=== PATIENT | male | born 1985 | race Two or more races ===

== ENCOUNTER 2020-05-24 06:39 | Day surgery (SDC) | payer MEDICAID, SELFPAY ==
[2020-05-15 20:28] VITALS: BMI 29.7
[2020-05-24] VITALS (7 sets, daily range): BP systolic 112–158; BP diastolic 66–95; PULSE 70–88; RESP 16–20; TEMP 36.6–36.9; O2SAT 93–97
[2020-05-24] MEDS: ceFAZolin Sodium/Dextrose,Iso 2 GM/50 ML PIGGYBACK IV (07:26)
[2020-05-24] MEDS: Lactated Ringers 1,000 ML 50 ML IVCONT (07:35)
--- NOTE | 2020-05-24 08:01 | HO.ANESPROP2 ---
[facility] Past Medical History Medical History Elevated cholesterol Hypertension Social History Social History Smoking Status: Never smoker Second Hand Smoke Exposure: No Use of substances other than those prescribed or required for medical reasons: No Advance Directives: No Advance Directives Information Provided: No Advance Directives on File: No Recently lost weight without trying: No Meds Allergies Allergy/AdvReac Type Severity Reaction Status Date / Time No Known Allergies Allergy Verified 05/24/20 07:08 Home Medications Medication Instructions Recorded Confirmed Type amlodipine 10 mg PO DAILY 05/15/20 05/24/20 History atorvastatin 40 mg PO BEDTIME 05/15/20 05/24/20 History Exam Exam Date and Time: May 24, 2020800 Height,Weight and Vital Signs: Height 5 ft 7 in Weight 86.183 kg Last Vital Signs Temp 97.9 F 05/24/20 07:18 Pulse 70 05/24/20 07:18 Resp 16 05/24/20 07:18 BP 158/95 H 05/24/20 07:18 Pulse Ox 97 05/24/20 07:18 Airway Mallampati Class: I TM Dist: >3cm Neck ROM: Full Heart: RRR Lungs: CTA Assessment and Plan Assessment Anesthesia Assessment: Anesthesia Plan Discussed and Chart Reviewed Final Anesthetic Review NPO: Yes ASA Class: II Final Preanesthetic Review: Meds/Allgs Chart Reviewed, Consent Obtained/Reviewed and Anes Risks/Benef Reviewed Patient Risk: Low Procedure Risk: Low Anesthetic Plan Anesthetic Plan: GA Disposition: Standard PACU
--- NOTE | 2020-05-24 08:13 | MHC.SHP ---
Pre-Procedural Eval Section B Chief Complaint: Gynecomastia Details of Present Illness: painful enlargement of left breast tissue, unimproved with tamoxifen. Relevant Family History (Specify if Yes): No Relevant Social History: None Present Medications: see Short Stay Collaborative assessment Medical History: Significant History (HTN) History of Previous Operations: No relevant previous surgery Allergies: Allergies Allergy/AdvReac Type Severity Reaction Status Date / Time No Known Allergies Allergy Verified 05/24/20 07:08 Review of Systems Sugical H&P ROS: Negative: Constitution, Cardiovascular, Respiratory, Neurological, Psychiatric, Hem-Onc, Allergic/Immunologic, Gastrointestinal, Genitourinary, Musculoskeletal, Integumentary, Endocrine and Eyes/Ears/Nose/Throat Exam Surgical H&P Exam: Normal: HEENT, Normal: Heart, Normal: Lungs, Normal: Extremities, Normal: Abdomen, Normal: Skin and Normal: Neurological Exam Comment: Thickened subareolar tissue left breast Plan Diagnosis/Plan: Unchanged Patient has been examined and remains a candidate for the planned procedure
[2020-05-24] MEDS: Acetaminophen 325 MG TABLET 650 MG PO (09:42)
[2020-05-24] MEDS: oxyCODONE HCl Immed Release 5 MG TABLET PO (09:43)
[2020-05-24] MEDS: ondansetron HCL 4 MG/2 ML VIAL IVPUSH (10:16)
--- NOTE | 2020-05-24 10:35 | W.PM.OPN ---
Operative Note Operative Note Date of Service: 05/24/20 Narrative: Preoperative Diagnosis: Gynecomastia, left Postoperative Diagnosis: Same Procedure: Excision of left gyencomastia Corporate Quality Assurance Manager: Sasha Hodges PA-C Anesthesia: General, laryngeal mask Estimated blood loss: 5 cc's Specimen: Left breast tissue Immediate Complications: None Indications: This is a 34-year-old gentleman with a history of painful enlargement of the subareolar breast tissue on the left side. He was treated initially with tamoxifen but did not have symptomatic improvement. Excision is planned. Procedure in detail: With the patient in the supine position after induction of adequate general anesthesia, time-out procedure was performed. 2 g of cefazolin were infused for antibiotic prophylaxis. The surgical site was infiltrated with local anesthetic prior to making incision. A periareolar incision was made involving the inferior approximately 50% of the areolar margin and was carried into the subcutaneous tissues. Bleeding was controlled using the electrosurgical pencil. Skin flaps were raised circumferentially and dissection was carried cephalad and to just above the level of the indurated and prominent breast tissue. The breast tissue was then excised circumferentially. Minimal bleeding was encountered and was controlled with electrosurgical pencil. The wound was irrigated with saline solution and was inspected for additional bleeding. None was seen. The tissues below the areola were reapproximated using a pursestring suture of 3-0 Polysorb. The incision was then closed with interrupted subcutaneous sutures of 3-0 Polysorb and a running subcuticular suture of 4-0 Polysorb. A small Fallon drain was trimmed and placed beneath the areolar flap. It was brought out along the medial corner of the incision. Steri-Strips were applied. A dry sterile dressing was applied and including the external portion of the drain. He tolerated the procedure well and was transported to the postanesthesia care unit in stable condition. Sponge and sharp counts were correct.
--- NOTE | 2020-05-24 10:45 | HO.POSTANES ---
Post Anesthesia Evaluation Post Anesthesia Evaluation Vital Signs: Vital Signs Temp Pulse Resp BP Pulse Ox 05/24/20 10:05 98.5 F 72 18 136/93 H 97 05/24/20 09:50 74 18 132/90 H 96 05/24/20 09:35 88 18 115/68 95 05/24/20 09:30 74 18 123/66 95 05/24/20 09:25 75 18 112/68 94 05/24/20 09:20 98.5 F 74 20 132/80 93 05/24/20 07:18 97.9 F 70 16 158/95 H 97 Anesthesia: General LMA Mental Status: Awake Pain Control: Satisfactory Nausea/Vomiting: None Hydration: Adequate Anesthesia-Related Issues: No Anes. Related Issues
== END 2020-05-24 10:43 | disposition home or self-care (01) ==
PROVIDERS: PCP Surgery; Visit Provider Surgery
PROC: (CPT 19120; principal; 2020-05-24 08:30)
DX: N62 Hypertrophy of breast (principal); I10 Essential (primary) hypertension; E78.00 Pure hypercholesterolemia, unspecified; Z79.899 Other long term (current) drug therapy
CPT/HCPCS: 19300; 88307; J0690; J1100; J2250; J2405; J3010

== ENCOUNTER → 2020-12-27 11:16 | Outpatient (BNVA) | payer MEDICAID, SELFPAY | PROVIDERS: Visit Provider Surgery | DX: N62 Hypertrophy of breast (principal) | CPT/HCPCS: 99212 ==

== ENCOUNTER → 2021-11-14 13:50 | Outpatient (BNVA) | payer MEDICAID, SELFPAY | PROVIDERS: Visit Provider Surgery | DX: N64.4 Mastodynia (principal) | CPT/HCPCS: 99212 ==

== ENCOUNTER 2021-12-07 13:29 | Outpatient (REF) | payer MEDICAID, SELFPAY ==
--- NOTE | ~2021-12-07 | MM_ITS ---
EXAMINATION: MM DIAGNOSTIC DIGITAL BREAST TOMOSYNTHESIS, BILATERAL US DIAGNOSTIC ULTRASOUND BREAST, LEFT CLINICAL INFORMATION: 36-year-old male with pain and fullness anterior left breast upper outer periareolar. Patient notes prior benign surgical excision left breast performed at outside facility. No discharge. COMPARISON: None. TECHNIQUE: Digital breast tomosynthesis is performed in both the craniocaudal and mediolateral oblique views along with computer-aided detection (CAD). Synthesized 2D images are generated from the tomosynthesis. Additional left CC view is performed. Ultrasound left breast is targeted to the retroareolar and periareolar region. Grayscale imaging and color Doppler are performed without and with harmonics. FINDINGS: The breasts are almost entirely fatty (ACR BI-RADS breast composition Category a). There is no mass or architectural abnormality or abnormal calcifications. There are scattered benign fine stromal markings retroareolar regions without definite changes to suggest gynecomastia. No skin thickening or coarsening of the stromal markings. The axilla are unremarkable. Ultrasound left breast demonstrates no cystic or solid mass or architectural abnormality. No focal duct ectasia. No skin thickening or edema tracking in soft tissue planes. No hyperemia. Results are discussed with the patient at time of visit. MM/MM tomosynthesis diagnostic BI IMPRESSION: -No mammographic evidence of malignancy or inflammatory changes. -Unremarkable left breast ultrasound. ASSESSMENT: BI-RADS 1: Negative RECOMMENDATION: -Patient should be managed based on the clinical impression.
== END 2021-12-07 13:30 | disposition home or self-care (01) ==
LOC: HO.MAMMO 13:29
PROVIDERS: PCP Internal Medicine; Visit Provider Surgery
DX: N64.4 Mastodynia (principal)
CPT/HCPCS: 76642; 77062; 77066

== ENCOUNTER → 2021-12-13 14:51 | Outpatient (BNVA) | payer MEDICAID, SELFPAY | PROVIDERS: PCP Internal Medicine; Visit Provider Surgery | DX: N64.4 Mastodynia (principal) | CPT/HCPCS: 99212 ==

== ENCOUNTER 2021-12-31 16:32 | Outpatient (REF) | payer MEDICAID, SELFPAY ==
[2021-12-31 16:46] LABS: MANUAL DIFF FLAG NO
[2021-12-31 16:54] LABS: Basophils Percent Auto 0.4 % (0-2); Eosinophils Absolute Auto 0.1 X10*3/uL (0.0-0.4); Eosinophils Percent Auto 1.4 % (0-4); Hematocrit 41.1 % (42.0-52.0); Hemoglobin 13.9 g/dl (14.0-18.0); Imm Gran Abs Auto 0.03 X10*3/uL (0.00-0.03); Imm Gran Pct Auto 0.4 % (0.0-0.4); Lymphocytes Absolute Auto 2.2 X10*3/uL (1.2-4.9); Lymphocytes Percent Auto 26.9 % (20-40); Mean Corpuscular HGB Conc 33.8 g/dl (31.0-36.0); Mean Corpuscular Hemoglobin 28.1 pg (27.0-33.0); Mean Corpuscular Volume 83.2 fL (80.0-98.0); Mean Platelet Volume 10.9 fL (9.4-12.4); Monocytes Absolute Auto 0.4 X10*3/uL (0.1-1.2); Monocytes Percent Auto 4.8 % (2-11); Neutrophils Absolute Auto 5.3 x10*3/uL (2.0-8.3); Neutrophils Percent Auto 66.1 % (45-73); Platelet Count 272 X10*3/uL (160-400); Red Blood Count 4.94 X10*6/uL (4.60-5.80); Red Cell Distribution Width 11.9 % (11.0-16.0); White Blood Count 8.1 X10*3/uL (4.8-10.8)
[2021-12-31 17:19] LABS: Alanine Aminotransferase 23 U/L (0-40); Albumin Level 4.7 g/dL (3.5-5.0); Alkaline Phosphatase 64 U/L (39-117); Anion Gap 12 (12-20); Aspartate Amino Transferase 17 U/L (5-37); Bilirubin Total 0.3 mg/dL (0.0-1.0); Blood Urea Nitrogen 14 mg/dL (9-16); Calcium 9.7 mg/dL (8.4-10.2); Carbon Dioxide 26 mmol/L (22-29); Chloride 106 mmol/L (96-108); Cholesterol 224 mg/dL; Estimated Glomerular Filt Rate > 60; Glucose Random 106 mg/dL (60-115); HDL Cholesterol 50 mg/dL; LDL Cholesterol Calculated 156 mg/dl; Potassium 4.8 mmol/L (3.3-5.1); Sodium 139 mmol/L (135-145); Total Protein 7.6 g/dL (6.5-8.0); Triglycerides 92 mg/dL
== END 2021-12-31 16:33 | disposition home or self-care (01) ==
LOC: HO.LAB 16:32
PROVIDERS: PCP Internal Medicine; Visit Provider Internal Medicine
DX: E78.2 Mixed hyperlipidemia (principal); G47.00 Insomnia, unspecified; G47.26 Circadian rhythm sleep disorder, shift work type; I10 Essential (primary) hypertension
CPT/HCPCS: 36415; 80053; 80061; 85025

== ENCOUNTER 2022-04-10 15:26 | Outpatient (REF) | payer MEDICAID, SELFPAY ==
[2022-04-10 17:16] LABS: Alanine Aminotransferase 21 U/L (0-40); Alkaline Phosphatase 58 U/L (39-117); Anion Gap 16 (12-20); Aspartate Amino Transferase 18 U/L (5-37); Bilirubin Total 0.7 mg/dL (0.0-1.0); Blood Urea Nitrogen 17 mg/dL (9-16); Calcium 9.7 mg/dL (8.4-10.2); Carbon Dioxide 25 mmol/L (22-29); Chloride 104 mmol/L (96-108); Cholesterol 227 mg/dL; Estimated Glomerular Filt Rate > 60; Glucose Random 98 mg/dL (60-115); HDL Cholesterol 53 mg/dL; LDL Cholesterol Calculated 165 mg/dl; Potassium 4.3 mmol/L (3.3-5.1); Sodium 141 mmol/L (135-145); Total Protein 7.9 g/dL (6.5-8.0); Triglycerides 45 mg/dL
== END 2022-04-10 15:27 | disposition home or self-care (01) ==
LOC: HO.LAB 15:26
PROVIDERS: Visit Provider Internal Medicine
DX: Z00.00 Encounter for general adult medical examination without abnormal findings (principal); M54.50 Low back pain, unspecified; I10 Essential (primary) hypertension; E78.00 Pure hypercholesterolemia, unspecified
CPT/HCPCS: 36415; 80053; 80061

== ENCOUNTER 2022-12-09 14:36 | Outpatient (REF) | payer MEDICAID, SELFPAY ==
[2022-12-09 15:05] LABS: MANUAL DIFF FLAG NO
[2022-12-09 16:50] LABS: Basophils Percent Auto 0.3 % (0-2); Eosinophils Absolute Auto 0.2 X10*3/uL (0.0-0.4); Hematocrit 39.7 % (42.0-52.0); Hemoglobin 13.2 g/dl (14.0-18.0); Imm Gran Abs Auto 0.03 X10*3/uL (0.00-0.03); Imm Gran Pct Auto 0.3 % (0.0-0.4); Lymphocytes Absolute Auto 2.6 X10*3/uL (1.2-4.9); Lymphocytes Percent Auto 26.9 % (20-40); Mean Corpuscular HGB Conc 33.2 g/dl (31.0-36.0); Mean Corpuscular Hemoglobin 28.2 pg (27.0-33.0); Mean Corpuscular Volume 84.8 fL (80.0-98.0); Mean Platelet Volume 11.8 fL (9.4-12.4); Monocytes Absolute Auto 0.5 X10*3/uL (0.1-1.2); Monocytes Percent Auto 4.7 % (2-11); Neutrophils Absolute Auto 6.3 x10*3/uL (2.0-8.3); Neutrophils Percent Auto 65.8 % (45-73); Platelet Count 263 X10*3/uL (160-400); Red Blood Count 4.68 X10*6/uL (4.60-5.80); Red Cell Distribution Width 12.4 % (11.0-16.0); White Blood Count 9.6 X10*3/uL (4.8-10.8)
[2022-12-09 17:13] LABS: Alanine Aminotransferase 24 U/L (0-40); Albumin Level 4.5 g/dL (3.5-5.0); Alkaline Phosphatase 74 U/L (39-117); Anion Gap 17 (12-20); Aspartate Amino Transferase 18 U/L (5-37); Bilirubin Total 0.7 mg/dL (0.0-1.0); Blood Urea Nitrogen 16 mg/dL (9-16); Calcium 9.8 mg/dL (8.4-10.2); Carbon Dioxide 27 mmol/L (22-29); Chloride 103 mmol/L (96-108); Cholesterol 201 mg/dL; Estimated Glomerular Filt Rate > 60; Glucose Random 107 mg/dL (60-115); HDL Cholesterol 56 mg/dL; LDL Cholesterol Calculated 124 mg/dl; Potassium 3.8 mmol/L (3.3-5.1); Sodium 143 mmol/L (135-145); Total Protein 7.4 g/dL (6.5-8.0); Triglycerides 108 mg/dL
[2022-12-09 17:31] LABS: Ferritin 354 ng/mL (20-250)
[2022-12-09 17:43] LABS: Vitamin B12 525 pg/mL (200-900)
== END 2022-12-09 14:37 | disposition home or self-care (01) ==
LOC: HO.LAB 14:36
PROVIDERS: PCP Internal Medicine; Visit Provider Internal Medicine
DX: E78.00 Pure hypercholesterolemia, unspecified (principal); G47.00 Insomnia, unspecified; I10 Essential (primary) hypertension; Z98.84 Bariatric surgery status
CPT/HCPCS: 36415; 80053; 80061; 82607; 82728; 82746; 85025

== ENCOUNTER 2023-09-22 15:39 | Outpatient (REF) | payer MEDICAID, SELFPAY ==
[2023-09-22 16:42] LABS: Alanine Aminotransferase 26 U/L (0-40); Albumin Level 4.7 g/dL (3.5-5.0); Alkaline Phosphatase 67 U/L (39-117); Anion Gap 13 (12-20); Aspartate Amino Transferase 23 U/L (5-37); Bilirubin Total 0.6 mg/dL (0.0-1.0); Blood Urea Nitrogen 8 mg/dL (9-16); Calcium 10.1 mg/dL (8.4-10.2); Carbon Dioxide 31 mmol/L (22-29); Chloride 104 mmol/L (96-108); Cholesterol 231 mg/dL (<200); Estimated Glomerular Filt Rate > 60; Glucose Random 106 mg/dL (60-115); HDL Cholesterol 53 mg/dL (>40); LDL Cholesterol Calculated 133 mg/dL (<100); Potassium 4.7 mmol/L (3.3-5.1); Sodium 143 mmol/L (135-145); Total Protein 7.9 g/dL (6.5-8.0); Triglycerides 226 mg/dL (<150)
== END 2023-09-22 15:40 | disposition home or self-care (01) ==
LOC: HO.LAB 15:39
PROVIDERS: PCP Internal Medicine; Visit Provider Internal Medicine
DX: Z00.00 Encounter for general adult medical examination without abnormal findings (principal); E78.00 Pure hypercholesterolemia, unspecified; I10 Essential (primary) hypertension; J35.8 Other chronic diseases of tonsils and adenoids; Z98.84 Bariatric surgery status
CPT/HCPCS: 36415; 80053; 80061

== ENCOUNTER 2025-04-18 15:50 | Outpatient (REF) | payer MEDICAID, SELFPAY ==
[2025-04-18 16:10] LABS: MANUAL DIFF FLAG NO
[2025-04-18 17:27] LABS: Hematocrit 46.2 % (42.0-52.0); Hemoglobin 15.3 g/dl (14.0-18.0); Imm Gran Abs Auto 0.02 X10*3/uL (0.00-0.03); Imm Gran Pct Auto 0.2 % (0.0-0.4); Lymphocytes Absolute Auto 1.9 X10*3/uL (1.2-4.9); Mean Corpuscular HGB Conc 33.1 g/dl (31.0-36.0); Mean Corpuscular Hemoglobin 28.6 pg (27.0-33.0); Mean Corpuscular Volume 86.4 fL (80.0-98.0); NRBC Abs Auto 0.000 X10*3/uL (0.0-0.012); NRBC Pct Auto 0.0 /100WBC (0.0-0.2); Platelet Count 265 X10*3/uL (160-400); Red Blood Count 5.35 X10*6/uL (4.60-5.80); White Blood Count 8.1 X10*3/uL (4.8-10.8)
[2025-04-18 17:53] LABS: Alanine Aminotransferase 33 U/L (0-40); Albumin Level 4.9 g/dL (3.5-5.0); Alkaline Phosphatase 78 U/L (39-117); Anion Gap 15 (12-20); Aspartate Amino Transferase 25 U/L (5-37); Blood Urea Nitrogen 10 mg/dL (9-16); Calcium 9.5 mg/dL (8.4-10.2); Carbon Dioxide 28 mmol/L (22-29); Chloride 106 mmol/L (96-108); Cholesterol 272 mg/dL (<200); Estimated Glomerular Filt Rate > 60; HDL Cholesterol 57 mg/dL (>40); Potassium 3.5 mmol/L (3.3-5.1); Sodium 145 mmol/L (135-145); Total Protein 7.6 g/dL (6.5-8.0); Triglycerides 196 mg/dL (<150)
[2025-04-18 18:09] LABS: Ferritin 136 ng/mL (20-250)
[2025-04-18 18:18] LABS: Folate 8.8 ng/mL (> or = 4.0); Vitamin B12 337 pg/mL (200-900)
--- OUTSIDE RECORDS SUMMARY | 2025-04-18 18:51 | XMS_ITS | Clinical Summary ---
Author Organization [facility] Address [address] [facility] [address] [place] [address] Phone Care Team Providers Care Provider Relations Representative Name Role Phone Carmen Aggarwal MD Primary Care Provider Allergies No known active allergies Medications amLODIPine (NORVASC) 10 MG tablet Take 1 tablet by mouth 1 (one) time each day 05/28/2021 Active atorvastatin (LIPITOR) 80 MG tablet Take 1 tablet by mouth 1 (one) time each day 06/17/2021 Active fenofibrate (TRIGLIDE) 160 MG tablet Take 1 tablet by mouth 1 (one) time each day 06/17/2021 Active losartan-hydroCH LOROthiazide (HYZAAR) 100-25 MG per tablet Take 1 tablet by mouth 1 (one) time each day 06/17/2021 Active Melatonin 5 MG tablet dispersible Take 2 tablets by mouth every night 04/24/2021 Active zolpidem (AMBIEN) 5 MG tablet Take 1 tablet by mouth 1 (one) time each day 06/20/2021 Active Active Problems Problem Noted Date Diagnosed Date Essential (primary) hypertension 07/17/2021 Family History Medical History Relation Comments Hypertension Brother Hypertension Mother Relation Status Comments Brother Mother Social History Tobacco Use Types Packs/Day Years Used Date Smoking Tobacco: Never Smokeless Tobacco: Never Tobacco Cessation:Counseling Given: Not Answered Alcohol Use Standard Drinks/Week Comments Yes 0 (1 standard drink = 0.6 oz pur e alcohol) Sex and Gender Information Value Date Recorded Sex Assigned at Not on file Legal Sex Male 2:07 PM EST Gender Identity Not on file Sexual Orientation Not on file Last Filed Vital Signs Vital Sign Reading Time Taken Comments Blood Pressure 140/80 07/22/2022 3:34 PM EST Pulse 79 07/22/2022 3:34 PM EST Temperature - - Respiratory Rate - - Oxygen Saturation 95% 07/17/2021 2:59 PM EST Inhaled Oxygen Concentration - - Weight 89.9 kg (198 lb 3.2 oz) 07/22/2022 3:34 P M EST Height - - Body Mass Index - - Plan of Treatment Health Maintenance Due Date Last Done Comments Hepatitis B Vaccine (1 of 3 - 19+ 3-dose series) 2003 Influenza Vaccine (#1) 2025 Pneumococcal Vaccine: Peds ( 0 to 5 Years) and At-Risk Patients (6 to 49 Years) Aged Out No longer eligible b ased on patient's age to complete this topic Insurance [place] Member Subscriber Plan / Payer (Ef fective 2021-Present) Name:Zachariah Wall Relation to Subscriber:Self Name:Zachariah Wall Payer ID:Not on file Group ID:Not on file Type:Not on file Address: [address] [place] Member Subscriber Plan / Payer (Ef fective 2021-Present) Name:Zachariah Wall Relation to Subscriber:Self Name:Zachariah Wall Payer ID:Not on file Group ID:Not on file Type:Not on file Address: [address] Care Teams Provider Relations Representative Relationship Specialty Start Date End Date Carmen Aggarwal MD [facility] [address] PCP - General Internal Medicine 06/26/21
[2025-04-21 17:48] LABS: TS Negative Control Passed; TS Panel A 0; TS Panel B 0; TS Positive Control Passed; TSpotTB Negative (Negative)
== END 2025-04-18 15:51 | disposition home or self-care (01) ==
LOC: HO.LAB 15:50
PROVIDERS: PCP Internal Medicine; Visit Provider Internal Medicine
DX: Z00.00 Encounter for general adult medical examination without abnormal findings (principal); Z11.1 Encounter for screening for respiratory tuberculosis; K21.9 Gastro-esophageal reflux disease without esophagitis; E78.2 Mixed hyperlipidemia; I10 Essential (primary) hypertension; R11.10 Vomiting, unspecified; Z98.84 Bariatric surgery status
CPT/HCPCS: 36415; 80053; 80061; 82607; 82728; 82746; 85025; 86481